=== PATIENT | male | born 1990 | race Caucasian/White ===

== ENCOUNTER 2017-02-22 16:01 | Observation (INO) | payer MEDICAID ==
[~2017-02-22] VITALS: Ht 185.4 cm; Wt 131.8 kg
[~2017-02-22 16:01] MED LIST: ACET1TAB40 PO; ACET500C5 PO; BENZ100C70 PO; DENIES MEDS; IBUP-1542 PO; MECL25TA2 PO; ONDA4TAB8 PO
[2017-02-22] MEDS ORDERED: ONDANSETRON 4 MG INJ IV STA (17:20)
[2017-02-22] MEDS ORDERED: HYDROmorphONE 1 MG/ML SYG IV STA ×2 (17:20→21:02)
[2017-02-22] MEDS ORDERED: SOD CHLORIDE 0.9% 1,000 ML IV STA (17:20)
[2017-02-22 18:42] LABS: ADD SCAN DIFF NO
[2017-02-22 18:43] LABS: BASOPHILS % 0.2 % (0.0-2.0); EOSINOPHILS # 0.1 10^3/ul (0.0-0.5); EOSINOPHILS % 0.7 % (0.0-7.0); HEMATOCRIT 44.7 % (42.0-52.0); HEMOGLOBIN 15.3 g/dl (14.0-18.0); LYMPHOCYTES # 1.6 10^3/ul (0.8-2.9); MEAN CORPUSCULAR HEMOGLOBIN 30.1 pg (29.0-33.0); MEAN CORPUSCULAR HGB CONC 34.2 g/dl (32.0-37.0); MEAN PLATELET VOLUME 9.5 fl (7.4-10.4); MONOCYTE # 0.6 10^3/ul (0.3-0.9); MONOCYTES % 4.8 % (0.0-11.0); NEUTROPHIL # 9.7 10^3/ul (1.6-7.5); NEUTROPHILS % 80.7 % (39.0-77.0); PLATELET COUNT 277 10^3/UL (140-415); RED BLOOD COUNT 5.08 10^6/ul (4.70-6.10); RED CELL DISTRIBUTION WIDTH 12.1 % (11.5-14.5)
[2017-02-22 19:07] LABS: ALBUMIN 4.4 g/dl (3.3-4.9); BILIRUBIN,INDIRECT 0.4 mg/dl (0-1.1); BILIRUBIN,TOTAL 0.4 mg/dl (0.2-1.3); CALCIUM 9.3 mg/dl (8.4-10.2); CREATININE 0.72 mg/dl (0.61-1.24); POTASSIUM 3.8 mmol/L (3.5-5.1); TOTAL PROTEIN 8.2 g/dl (6.1-8.1)
[2017-02-22 19:08] LABS: ALBUMIN/GLOBULIN RATIO 1.15
[2017-02-22] MEDS ORDERED: SOD CHLORIDE 0.9% 100 ML ONE (19:30)
[2017-02-22] MEDS ORDERED: IOHEXOL 300MG/ML 150 ML BTL ONE (19:30)
--- NOTE | 2017-02-22 19:52 | RADRPT ---
PROCEDURE: CT Abdomen and Pelvis with contrast. CLINICAL INDICATION: Abdomen and pelvis pain. Right lower quadrant pain. TECHNIQUE: CT scan of the abdomen and pelvis with contrast was performed. The patient was scanned following the uncomplicated intravenous administration of 100 cc of Omnipaque-300. Coronal and sag ittal reformatted images were obtained from the axial source images. Images were reviewed on a high- resolution PACS workstation. Total exam DLP is 1606.99 mGy-cm. CTDIvol is 23.61 mGy. One or more of the following dose reduction techniques were used: Automated exposure control, adjustment of the mA and/or kV according to patient size, use of iterative reconstruction technique. COMPARISON: 06/12/2015. FINDINGS: The lung bases are normal. There is no pleural effusion. The liver is enlarged and diffusely decreased attenuation consistent with fatty metamorphosis, uncha nged. There is a small ill-defined region of focal fatty sparing adjacent to the gallbladder. There is no other focal hepatic lesion. The gallbladder and bile ducts are normal. The spleen is normal in size. There is no focal splenic lesion. Both adrenals are normal with no enlargement or mass. The pancreas is unremarkable with no mass or evidence of pancreatitis. Both kidneys demonstrate normal contrast enhancement. There is no renal mass or hydronephrosis. The abdominal aorta is not dilated. There is no retroperitoneal lymphadenopathy or mass. There is no pelvic lymphadenopathy or mass. The bladder and distal ureters are normal. The appendix is mildly dilated measuring 9 mm in diameter. There is mild surrounding mesenteric bhargav ma and enhancement of the wall consistent with acute appendicitis. There is no fluid collection or mass to suggest abscess. The bowel and mesentery are otherwise normal. There is no free fluid or free gas. The osseous structures are unremarkable with no fracture or lytic lesion. IMPRESSION: 1. Hepatomegaly. 2. Fatty metamorphosis of the liver. 3. Small region of hepatic focal fatty sparing adjacent to the gallbladder. 4. Early acute appendicitis. 5. No abscess. 6. Otherwise unremarkable contrast enhanced CT scan of the abdomen and pelvis. RPTAT: QQ .Magdaleno Nielsen MD, MD Date Time Electronically viewed and signed by .Magdaleno Nielsen MD, on 02/22/2017 19:52 .Benji
[2017-02-22] MEDS ORDERED: CEFTRIAXONE 1 GM/50 ML (PMX) 50 ML IVPB ONE (20:30)
[2017-02-22] MEDS ORDERED: metroNIDAZOLE 500 MG/NS (PMX) 100 ML IVPB ONE (20:30)
--- NOTE | 2017-02-22 20:32 | ERA ---
ER Documentation Chief Complaint Date/Time DATE: 02/22/17 TIME: 20:29 Chief Complaint ABD PAIN SINCE THIS MORNING WITH DIARRHEA HPI This 27-year-old male complains of nausea vomiting diarrhea and fever onset this morning with periumbilical pain that has been escalating as the days progressed. The pain is dull and constant worse with movement somewhat. No dysuria no hematuria. No blood or bile in the vomit, no blood in the diarrhea. No epigastric pain. ROS All systems reviewed and are negative except as per history of present illness. Medications Home Meds Active Scripts Benzonatate* (Tessalon Perle*) 100 Mg Capsule, 100 MG PO Q8H Y for COUGH for 10 Days, CAP Prov:THANHTARIANADA PA-C 10/03/16 Acetaminophen* (Tylophen*) 500 Mg Capsule, 1 CAP PO Q6H Y for PAIN AND OR ELEVATED TEMP, #20 CAP Prov:THANHTARIADA MARMOLEJO PA-C 10/03/16 Ondansetron Hcl* (Zofran*) 4 Mg Tablet, 4 MG PO Q6H for NAUSEA AND/OR VOMITING, #30 TAB Prov:ADA DELACRUZ PA-C 10/03/16 Ibuprofen* (Motrin*) 600 Mg Tab, 600 MG PO Q6H Y for PAIN AND OR ELEVATED TEMP, #30 TAB Prov:CAMPOS LEO NP 03/19/16 Meclizine Hcl* (Antivert*) 25 Mg Tablet, 25 MG PO Q6H Y for DIZZINESS, #20 TAB Prov:CAMPOS LEO NP 03/19/16 Acetaminophen-Codeine* (Acetaminophen-Cod #3*) 300-30 Mg Tab, 1 TAB PO Q4H Y for PAIN, #14 TAB Prov:WU CHE MD 06/12/15 Ibuprofen* (Motrin*) 600 Mg Tab, 600 MG PO Q6, #20 TAB Prov:WU CHE MD 06/12/15 Reported Medications [none] Unknown Strength No Conflict Check 03/19/16 [Denies Meds] No Conflict Check 03/29/11 Allergies Allergies: Coded Allergies: Penicillins (Verified Allergy, Mild, 10/03/16) PMhx/Soc History of Surgery: No Anesthesia Reaction: No Hx Neurological Disorder: No Hx Respiratory Disorders: No Hx Cardiac Disorders: No (PALPITATIONS) Hx Psychiatric Problems: No Hx Miscellaneous Medical Probl: No Hx Alcohol Use: Yes (occasionally) Hx Substance Use: Yes (marijuana) Hx Tobacco Use: No Smoking Status: Former smoker FmHx Family History: No coronary disease Physical Exam Vitals Vital Signs Date Time Temp Pulse Resp B/P Pulse Ox O2 Delivery O2 Flow Rate FiO2 02/22/17 16:03 98.0 92 18 146/89 99 Physical Exam Const: Well-developed, well-nourished Head: Atraumatic, normocephalic Eyes: Normal Conjunctiva, PERRLA, EOMI, normal sclera, no nystagmus ENT: Normal External Ears, Nose and Mouth, moist mucus membranes. Neck: Full range of motion. No meningismus, no lymphadenopathy. Resp: Clear to auscultation bilaterally, no wheezing, rhonchi, rales Cardio: Regular rate and rhythm, no murmurs, S1 S2 present Abd: Soft, mild periumbilical tenderness with moderate right lower quadrant tenderness positive Rovsing, non distended. Normal bowel sounds, no guarding or rebound, no pulsitile abdominal masses or bruits Skin: No petechiae or rashes, no ecchymosis , no maculopapular rash Back: No midline or flank tenderness Ext: No cyanosis, or edema, FROM x 4, normal inspection, neurovascularly intact x 4 Neur: Awake and alert, STR 5/5 x 4, sensation intact x 4, no focal findings, cerebellum intact Psych: Normal Mood and Affect Result Diagram: 02/22/17 1745 02/22/17 1745 Results 24 hrs Laboratory Tests Test 02/22/17 17:45 White Blood Count 12.010^3/ul Red Blood Count 5.0810^6/ul Hemoglobin 15.3g/dl Hematocrit 44.7% Mean Corpuscular Volume 88.0fl Mean Corpuscular Hemoglobin 30.1pg Mean Corpuscular Hemoglobin Concent 34.2g/dl Red Cell Distribution Width 12.1% Platelet Count 33196^3/UL Mean Platelet Volume 9.5fl Neutrophils % 80.7% Lymphocytes % 13.0% Monocytes % 4.8% Eosinophils % 0.7% Basophils % 0.2% Nucleated Red Blood Cells % 0.0/100WBC Neutrophils # 9.710^3/ul Lymphocytes # 1.610^3/ul Monocytes # 0.610^3/ul Eosinophils # 0.110^3/ul Basophils # 0.010^3/ul Nucleated Red Blood Cells # 0.010^3/ul Sodium Level 136mmol/L Potassium Level 3.8mmol/L Chloride Level 102mmol/L Carbon Dioxide Level 27mmol/L Anion Gap 11 Blood Urea Nitrogen 7mg/dl Creatinine 0.72mg/dl Glucose Level 100mg/dl Calcium Level 9.3mg/dl Total Bilirubin 0.4mg/dl Direct Bilirubin 0.00mg/dl Indirect Bilirubin 0.4mg/dl Aspartate Amino Transf (AST/SGOT) 64IU/L Alanine Aminotransferase (ALT/SGPT) 147IU/L Alkaline Phosphatase 117IU/L Total Protein 8.2g/dl Albumin 4.4g/dl Globulin 3.80g/dl Albumin/Globulin Ratio 1.15 Lipase 78U/L Current Medications Medications (Trade) Dose Ordered Sig/Bhaskar Route PRN Reason Start Time Stop Time Status Last Admin Dose Admin Sodium Chloride (NS) 1,000 ml @ 1,000 mls/hr Q1H STAT IV 02/22/17 17:20 02/22/17 18:19 DC 02/22/17 18:00 Hydromorphone HCl (Dilaudid) 1 mg ONCE STAT IV 02/22/17 17:20 02/22/17 17:21 DC 02/22/17 17:59 Ondansetron HCl (Zofran Inj) 4 mg ONCE STAT IV 02/22/17 17:20 02/22/17 17:21 DC 02/22/17 17:59 IV Flush 10 ml 10 ml STK-MED ONCE .ROUTE 02/22/17 19:30 02/22/17 19:31 DC 02/22/17 19:39 Sodium Chloride (NS) 100 ml @ ud STK-MED ONCE .ROUTE 02/22/17 19:30 02/22/17 19:31 DC 02/22/17 19:39 Iohexol (Omnipaque 300mg/ ml) 150 ml STK-MED ONCE .ROUTE 02/22/17 19:30 02/22/17 19:31 DC 02/22/17 19:40 Procedures/MDM PROCEDURE: CT Abdomen and Pelvis with contrast. CLINICAL INDICATION: Abdomen and pelvis pain. Right lower quadrant pain. TECHNIQUE: CT scan of the abdomen and pelvis with contrast was performed. The patient was scanned following the uncomplicated intravenous administration of 100 cc of Omnipaque-300. Coronal and sagittal reformatted images were obtained from the axial source images. Images were reviewed on a high- resolution PACS workstation. Total exam DLP is 1606.99 mGy-cm. CTDIvol is 23.61 mGy. One or more of the following dose reduction techniques were used: Automated exposure control, adjustment of the mA and/or kV according to patient size, use of iterative reconstruction technique. COMPARISON: 06/12/2015. FINDINGS: The lung bases are normal. There is no pleural effusion. The liver is enlarged and diffusely decreased attenuation consistent with fatty metamorphosis, unchanged. There is a small ill-defined region of focal fatty sparing adjacent to the gallbladder. There is no other focal hepatic lesion. The gallbladder and bile ducts are normal. The spleen is normal in size. There is no focal splenic lesion. Both adrenals are normal with no enlargement or mass. The pancreas is unremarkable with no mass or evidence of pancreatitis. Both kidneys demonstrate normal contrast enhancement. There is no renal mass or hydronephrosis. The abdominal aorta is not dilated. There is no retroperitoneal lymphadenopathy or mass. There is no pelvic lymphadenopathy or mass. The bladder and distal ureters are normal. The appendix is mildly dilated measuring 9 mm in diameter. There is mild surrounding mesenteric edema and enhancement of the wall consistent with acute appendicitis. There is no fluid collection or mass to suggest abscess. The bowel and mesentery are otherwise normal. There is no free fluid or free gas. The osseous structures are unremarkable with no fracture or lytic lesion. IMPRESSION: 1. Hepatomegaly. 2. Fatty metamorphosis of the liver. 3. Small region of hepatic focal fatty sparing adjacent to the gallbladder. 4. Early acute appendicitis. 5. No abscess. 6. Otherwise unremarkable contrast enhanced CT scan of the abdomen and pelvis. RPTAT: QQ .Wu Nielsen MD, MD Date Time Electronically viewed and signed by .Wu Nielsen MD, on 02/22/2017 19:52 .R/ CC: JAE CRUZ DO Paged general surgery [facility] for consult for appendicitis. Will admit to panel Patient received Rocephin and Flagyl due to penicillin allergy Departure Diagnosis: Primary Impression: Appendicitis Qualified Code: K35.80 - Acute appendicitis, unspecified acute appendicitis type Condition: Stable JAE CRUZ DO Feb 22, 2017 20:32
[2017-02-22 21:11] VITALS: TEMP 98.4
[2017-02-22] MEDS ORDERED: SOD CHLORIDE 0.9% 1,000 ML IV SCH (21:23)
[2017-02-22] MEDS ORDERED: ONDANSETRON 4 MG INJ IV PRN (21:30)
[2017-02-22] MEDS ORDERED: ACETAMINOPHEN 325 MG TAB PO PRN (21:30)
[2017-02-22] MEDS ORDERED: SOD CHLORIDE 0.9% 1,000 ML IV ONE (21:30)
[2017-02-23] VITALS (18 sets, daily range): BP systolic 110–154; BP diastolic 58–83; PULSE 60–84; RESP 14–20
[2017-02-23] MEDS ORDERED: morphine 4 MG/ML VIAL IV PRN (01:20)
[2017-02-23] MEDS ORDERED: ONDANSETRON 4 MG INJ IV PRN ×3 (01:30→15:00)
[2017-02-23] MEDS: DEXTROSE 5%-0.45% NACL 1,000 ML IV SCH ×3 (01:36→11:49)
[2017-02-23] MEDS ORDERED: LEVOFLOXACIN 500MG/D5W (PMX) 100 ML IVPB SCH ×2 (03:00→14:00)
--- NOTE | 2017-02-23 03:30 | HP ---
DATE OF ADMISSION: 02/22/2017 CHIEF COMPLAINT: Abdominal pain. HISTORY OF PRESENT ILLNESS: The patient is a 27-year-old male with no past medical history who pres ented to the emergency department with abdominal pain that started this morning. The pain was initi ally diffuse but later on had been more localized in the right lower quadrant area. He reported mul tiple episodes of nonbloody, nonbilious emesis. He denied any fever, chills, chest pain, shortness of breath. When he presented to the ER, blood pressure was 146/89, heart rate 92, respiratory rate 18, temperat ure 98, oxygen saturation 99% on room air. Laboratory value shows a WBC of 12, AST 64, AST 147. Ot herwise, CBC and CMP are within normal limits. CT abdomen and pelvis with contrast shows early acut e appendicitis, hepatomegaly, and fatty liver. The patient was given IV fluids, pain medication, an d antiemetics, and he was started on Flagyl and Rocephin while he was in the ER. REVIEW OF SYSTEMS: A 12-point review was performed and negative except as mentioned in HPI. PAST MEDICAL HISTORY: Denies. PAST SURGICAL HISTORY: Denies. ALLERGIES: PENICILLIN. HOME MEDICATIONS: Please see the reconciliation medication. PHYSICAL EXAMINATION: VITAL SIGNS: Stable. GENERAL: No acute distress, answering questions appropriately. He is alert and oriented. HEENT: No obvious head deformity. Extraocular muscles intact. CARDIOVASCULAR: Regular rate and rhythm. No extra sounds. LUNGS: Clear. ABDOMEN: Soft. There is tenderness diffusely to deep palpation but more tender in the right lower quadrant region with no guarding, no rebound tenderness, no rigidity. EXTREMITIES: No edema. NEUROLOGIC: No focal deficits. LABORATORY DATA: Pertinent positives as mentioned in HPI. IMAGING: CT abdomen and pelvis with contrast with results as mentioned in the HPI. IMPRESSION: 1. Acute appendicitis. 2. Abdominal pain, secondary to above. 3. Leukocytosis, secondary to acute appendicitis. 4. Fatty liver. 5. Elevated transaminases, most likely secondary to fatty liver. PLAN: We will keep n.p.o. with IV fluids. We will provide pain medication and antiemetics as neede d. He will also be placed on antibiotics. Currently, he is awaiting surgical evaluation. Further workup and management per clinical course. Dictated By: CASSY GIPSON/ANA ROSA Conf#: [id number] DID#: [id number]
[2017-02-23 05:46] LABS: ADD SCAN DIFF NO
[2017-02-23 06:04] LABS: BASOPHILS % 0.2 % (0.0-2.0); EOSINOPHILS # 0.2 10^3/ul (0.0-0.5); HEMATOCRIT 39.5 % (42.0-52.0); HEMOGLOBIN 12.9 g/dl (14.0-18.0); LYMPHOCYTES # 2.7 10^3/ul (0.8-2.9); LYMPHOCYTES % 26.8 % (15.0-51.0); MEAN CORPUSCULAR HEMOGLOBIN 29.6 pg (29.0-33.0); MEAN CORPUSCULAR HGB CONC 32.7 g/dl (32.0-37.0); MEAN CORPUSCULAR VOLUME 90.6 fl (82.0-101.0); MEAN PLATELET VOLUME 9.6 fl (7.4-10.4); MONOCYTE # 0.5 10^3/ul (0.3-0.9); MONOCYTES % 5.2 % (0.0-11.0); NEUTROPHIL # 6.5 10^3/ul (1.6-7.5); NEUTROPHILS % 65.2 % (39.0-77.0); PLATELET COUNT 241 10^3/UL (140-415); RED BLOOD COUNT 4.36 10^6/ul (4.70-6.10); RED CELL DISTRIBUTION WIDTH 12.5 % (11.5-14.5)
[2017-02-23 06:16] LABS: ALBUMIN 3.5 g/dl (3.3-4.9)
[2017-02-23 06:17] LABS: POTASSIUM 3.5 mmol/L (3.5-5.1)
[2017-02-23 06:19] LABS: BILIRUBIN,INDIRECT 0.6 mg/dl (0-1.1); BILIRUBIN,TOTAL 0.6 mg/dl (0.2-1.3); CREATININE 0.83 mg/dl (0.61-1.24)
[2017-02-23 06:20] LABS: CALCIUM 8.4 mg/dl (8.4-10.2); MAGNESIUM 1.8 mg/dl (1.7-2.5)
--- NOTE | 2017-02-23 11:49 | PN ---
Date/Time of Note Date/Time of Note DATE: 02/23/17 TIME: 11:47 Assessment/Plan VTE Prophylaxis VTE Prophylaxis Intervention: other Lines/Catheters IV [facility] Peripheral IV Assessment/Plan Problems: (1) Obesity (BMI 35.0-39.9 without comorbidity) Status: Chronic Comment: Counseled gently (2) Appendicitis Status: Acute Comment: Patient will be seen in surgical consultation by Dr. Rivas. ER notes and Dr. Ochoa notes indicate that he is artery been contacted. For now patient's on antibiotics and observation Qualifiers: Appendicitis type: acute appendicitis Acute appendicitis type: unspecified acute appendicitis type Qualified Code: K35.80 - Acute appendicitis, unspecified acute appendicitis type Subjective 24 Hr Interval Summary Free Text/Dictation Patient reports with pain medications he is feeling better. Constitutional: no complaints (No fevers chills or sweats) Respiratory: no complaints Cardiovascular: no complaints Gastrointestinal: pain Exam/Review of Systems Vital Signs Vitals Vital Signs Date Time Temp Pulse Resp B/P Pulse Ox O2 Delivery O2 Flow Rate FiO2 02/23/17 07:20 98.2 81 18 119/66 96 02/23/17 00:05 Room Air Intake and Output 02/22/17 02/22/17 02/23/17 15:00 23:00 07:00 Intake Total 50 ml 1100 ml Balance 50 ml 1100 ml Exam Constitutional: alert, oriented Neck: non-tender, supple Respiratory: clear to auscultation, normal air movement Cardiovascular: nl pulses, regular rate and rhythm Gastrointestinal: other (Right lower quadrant tenderness with plus minus rebound after analgesia) Results Result Diagram: 02/23/17 0421 02/23/17 0421 Results 24 hrs Laboratory Tests Test 02/22/17 17:45 02/23/17 04:21 White Blood Count 12.0 #H 10.0 Red Blood Count 5.08 4.36 L Hemoglobin 15.3 12.9 L Hematocrit 44.7 39.5 L Mean Corpuscular Volume 88.0 90.6 Mean Corpuscular Hemoglobin 30.1 29.6 Mean Corpuscular Hemoglobin Concent 34.2 32.7 Red Cell Distribution Width 12.1 12.5 Platelet Count 277 241 Mean Platelet Volume 9.5 # 9.6 Neutrophils % 80.7 H 65.2 Lymphocytes % 13.0 L 26.8 Monocytes % 4.8 5.2 Eosinophils % 0.7 2.0 Basophils % 0.2 0.2 Nucleated Red Blood Cells % 0.0 0.0 Neutrophils # 9.7 H 6.5 Lymphocytes # 1.6 2.7 Monocytes # 0.6 0.5 Eosinophils # 0.1 0.2 Basophils # 0.0 0.0 Nucleated Red Blood Cells # 0.0 0.0 Sodium Level 136 139 Potassium Level 3.8 3.5 Chloride Level 102 101 Carbon Dioxide Level 27 28 Anion Gap 11 14 Blood Urea Nitrogen 7 7 Creatinine 0.72 0.83 Glucose Level 100 96 Calcium Level 9.3 8.4 Total Bilirubin 0.4 0.6 Direct Bilirubin 0.00 0.00 Indirect Bilirubin 0.4 0.6 Aspartate Amino Transf (AST/SGOT) 64 H 58 H Alanine Aminotransferase (ALT/SGPT) 147 H 114 H Alkaline Phosphatase 117 84 Total Protein 8.2 H 7.0 # Albumin 4.4 3.5 Globulin 3.80 H 3.50 H Albumin/Globulin Ratio 1.15 1.00 Lipase 78 Phosphorus Level 4.0 Magnesium Level 1.8 Medications Medications Current Medications Ondansetron HCl 4 mg 4 mg Q6H PRN IV NAUSEA AND/OR VOMITING Last administered on 02/23/17 01:36; Admin Dose 4 MG; Start 02/23/17 at 01:30 Dextrose/Sodium Chloride (D5-1/2ns) 1,000 ml @ 125 mls/hr Q8H IV Last administered on 02/23/17 01:36; Admin Dose 125 MLS/HR; Start 02/23/17 at 01:30 Morphine Sulfate 4 mg 4 mg Q4H PRN IV PAIN Last administered on 02/23/17 01:36 ; Admin Dose 4 MG; Start 02/23/17 at 01:20 Levofloxacin/ Dextrose (Levaquin 500mg/ D5W 100 ml (Pmx)) 100 ml @ 100 mls/hr Q24H IVPB Last administered on 02/23/17 03:23; Admin Dose 100 MLS/HR; Start at 03:00 STEVE RUSS MD Feb 23, 2017 11:49
[2017-02-23] MEDS ORDERED: morphine 2 MG INJ IV PRN (14:00)
[2017-02-23] MEDS ORDERED: ACETAMINOPHEN 325 MG TAB PO PRN (14:00)
[2017-02-23] MEDS ORDERED: FENTAnyl 50 MCG/ML VIAL ONE (14:12)
[2017-02-23] MEDS ORDERED: BUPIVACAINE 0.25%/EPI (SDV) 30 ML INJ ONE (14:21)
[2017-02-23] MEDS ORDERED: LIDOCAINE 1%/EPI 30 ML INJ ONE (14:21)
[2017-02-23] MEDS ORDERED: GLYCOPYRROLATE 0.4 MG INJ ONE (14:46)
[2017-02-23] MEDS ORDERED: ROPIVACAINE 0.5 % 30 ML VIAL ONE (14:46)
[2017-02-23] MEDS ORDERED: PROPOFOL 40 ML ONE (14:46)
[2017-02-23] MEDS ORDERED: ROCURONIUM 50 MG INJ ONE (14:46)
[2017-02-23] MEDS ORDERED: LIDOCAINE 2% (SDV) 5 ML INJ ONE (14:46)
[2017-02-23] MEDS ORDERED: NEOSTIGMINE 3 MG/3 ML SYRINGE ONE (14:46)
[2017-02-23] MEDS ORDERED: SUCCINYLCHOLINE CHLORIDE 100 MG/5 ML SYG IV ONE (14:46)
[2017-02-23] MEDS ORDERED: HYDROmorphONE (0.2 MG/ML) 10ML SYG IV PRN ×3 (15:00)
[2017-02-23] MEDS ORDERED: FENTAnyl 50 MCG/ML VIAL IV PRN ×2 (15:00)
[2017-02-23] MEDS ORDERED: METOCLOPRAMIDE 10 MG INJ IV PRN (15:00)
[2017-02-23] MEDS ORDERED: DIPHENHYDRAMINE 50 MG INJ IV PRN (15:00)
[2017-02-23] MEDS ORDERED: MEPERIDINE 25 MG INJ IV PRN (15:00)
--- NOTE | 2017-02-23 15:02 | CONS ---
DATE OF ADMISSION: 02/22/2017 DATE OF CONSULTATION: 02/23/2017 HISTORY OF PRESENT ILLNESS: Mr. Serrano is a 27-year-old male who had acute onset of abdominal rhonda n yesterday morning. His symptoms persisted and he went to work. When he went to work, he noticed his pain to the right lower quadrant. Due to radiation of was pain and persistence he came to the E [facility]. His workup in the ER was consistent with acute appendicitis. PAST MEDICAL HISTORY: Noncontributory. PAST SURGICAL HISTORY: None. MEDICATIONS: None. ALLERGIES: PENICILLIN. SOCIAL HISTORY: Drinks occasionally. Denies smoking or drug use. PHYSICAL EXAMINATION: GENERAL: He is a well-developed, well-nourished male in no apparent distress. VITAL SIGNS: He is afebrile. Vital signs stable. CHEST: Clear to auscultation bilaterally. HEART: Regular rhythm. ABDOMEN: Soft, nondistended, but significant right lower quadrant tenderness. LABORATORY DATA: Reveal a white count of 10, hematocrit of 40 and platelets of 241. Sodium 139, po tassium 3.5, chloride 101, CO2 of 28, BUN and creatinine 7 and 0.8, glucose 96. IMAGING: A CT of the abdomen and pelvis was consistent with acute appendicitis. ASSESSMENT AND PLAN: Acute appendicitis. I discussed laparoscopic, possible open appendectomy with the patient. All benefits, risks, alternatives were discussed in detail. All questions answered a nd patient elects to proceed. Dictated By: FREDA MCKEON/NTS Conf#: [id number] DID#: [id number]
[2017-02-23] MEDS: D5-NS + KCL 20 MEQ 1,000 ML IV SCH (16:05)
[2017-02-23] MEDS: KETOROLAC 30 MG INJ IV SCH ×2 (16:05→22:45)
--- NOTE | 2017-02-23 19:22 | OPR ---
DATE OF OPERATION: 02/23/2017 PREOPERATIVE DIAGNOSIS: Acute appendicitis. POSTOPERATIVE DIAGNOSIS: Acute appendicitis. PROCEDURE: Laparoscopic appendectomy. SURGEON: Freda Haro MD SPACE OFFICER: None. ANESTHESIA: General endotracheal. ANESTHESIOLOGIST: Dr. Buchanan ESTIMATED BLOOD LOSS: Minimal. COMPLICATIONS: None. SPECIMEN: Appendix. FINDINGS: Acute appendicitis. INDICATIONS: Mr. Serrano is a 27-year-old male who had acute onset of generalized abdominal pain, which localized to his right lower quadrant. He presented to the ER, and his work-up was c/w acute appendicitis. I discussed laparoscopic, possible open, appendectomy with the patient. All benefits, risks , alternatives were discussed in detail. All questions answered. The patient elects to proceed. PROCEDURE IN DETAIL: The patient was brought to the operating room and placed supine on the table. After preoperative antibiotics and SCDs were placed, the patient was intubated and the abdomen was cleaned, prepped, and draped in the usual sterile fashion. . A 5 mm incision was made in the umbilicus using a 5 laparoscope-containing trocar. The abdomen was entered under direct vision and insufflated to 15 mmHg CO2. The following trocars were then placed under direct vision: Right lower quadrant 5 mm, left lower quadrant 5 mm. Emanating from the cecum was an obvious acute appendicitis. It was not ruptured, perforated. There were some adhesions of the appendix to the cecum, which were taken down with electrocautery. Thus, I was able to elevate the appendix. I then was able to make a rent in the mesentery at the base of the appendix and then divide the cecum at the base of the appendix with a 35 Endo linear cutter white load. The appendix was then elevated and I divided the mesentery with a 35 mm Endo linear cutter white load. The appendix was placed in EndoCatch bag and removed from the 12 mm trocar site. There was some slight oozing from the vascular staple line, which was controlled with electrocautery. At this point, I irrigated out the right lower quadrant and pelvis until the effluent was clear. I visualized my staple lines again. They were hemostatic. I closed the fascia of the 12 mm trocar site with a 0 Vicryl using an EndoClose device under direct vision. All trocars were removed and the abdomen was completely desufflated. Skin incisions were all closed with 4-0 Monocryl, Mastisol, and Steri-Strips. The patient tolerated procedure well, was extubated in the OR, and transferred to the recovery room stable. Dictated By: FREDA HARO MD MAL/NTS Conf#: [id number] DID#: [id number] CC: CASSY DANIEL MD;*EndCC* MTDD
[2017-02-23] MEDS: OXYCODONE/ACETAMINOPHEN (5/325) TAB PO PRN (19:48)
[2017-02-24] MEDS ORDERED: LEVOFLOXACIN 500MG/D5W (PMX) 100 ML IVPB SCH (03:00)
[2017-02-24] MEDS: OXYCODONE/ACETAMINOPHEN (5/325) TAB PO PRN ×2 (04:46→11:07)
[2017-02-24] MEDS: D5-NS + KCL 20 MEQ 1,000 ML IV SCH ×2 (04:46→09:42)
[2017-02-24] MEDS: KETOROLAC 30 MG INJ IV SCH ×2 (04:46→10:41)
[2017-02-24] MEDS ORDERED: ENOXAPARIN 40 MG/0.4 ML SYG SC SCH (07:00)
[2017-02-24 08:16] VITALS: BP 113/69; RESP 18
--- NOTE | 2017-02-24 13:24 | PN ---
DATE: 02/24/2017 SUBJECTIVE: Ms. Serrano is postop day 1 from laparoscopic appendectomy. The patient is without co mplaints, feels well. OBJECTIVE: VITAL SIGNS: He is afebrile. Vital signs stable. ABDOMEN: Soft, nontender, nondistended. His wounds are clean, dry and intact. LABORATORY DATA: There are no labs today. ASSESSMENT AND PLAN: 1. Mr. Serrano is postop day 1 from laparoscopic appendectomy. 2. Stable for discharge home today. 3. The patient was given my instructions and restrictions. Dictated By: FREDA MCKEON/NTS Conf#: [id number] DID#: [id number]
[2017-02-24] MEDS ORDERED: DOCU-144 PO ×3 (14:57→14:59)
[2017-02-24] MEDS ORDERED: OXYC-279 PO (14:59)
--- NOTE | 2017-02-24 18:23 | DS ---
DATE OF ADMISSION: 02/22/2017 DATE OF DISCHARGE: 02/24/2017 DISCHARGE DIAGNOSIS: 1. Acute appendicitis status post laparoscopic appendectomy. 2. Morbid obesity. HOSPITAL COURSE : This is a 27-year-old male who presented to ER with complaints of abdominal pain. CT scan was consistent with possible acute appendicitis. The patient was seen by Dr. Rivas in powers rgical consult and underwent a laparoscopic appendectomy. Postop course was unremarkable. The marcie ent is doing well and being discharged home. DISCHARGE INSTRUCTIONS: DIET: Soft diet and advance as per surgical instructions. Activity as to lerated. MEDICATIONS: Upon discharge, Colace and Warren as per Dr. Rivas. Antibiotics have been completed. Medicine consult will be done by Dr. Castellano. Dictated By: MARCOS GRANT MD, MA/ANA ROSA Conf#: [id number] DID#: [id number]
== END 2017-02-24 15:30 | disposition home or self-care (01) ==
LOC: FTE 16:01 → MS1 21:24
PROVIDERS: ADMIT Internal Medicine; ATTEND Internal Medicine
DX: K35.80 Unspecified acute appendicitis (principal); E66.01 Morbid (severe) obesity due to excess calories; Z68.38 Body mass index [BMI] 38.0-38.9, adult
CPT/HCPCS: 36415; 44970; 74177; 80053; 83690; 83735; 84100; 85025; 88304; 96361; 96365; 96367; 96372; 96374; 96375; 96376; J0330; J0696; J1170; J1650; J1885; J1956; J2175; J2270; J2405; J2710; J2795; J3010; J3480; J7030; J7042; Q9967; Z7500; Z7502; Z7512; Z7610; G0378

== ENCOUNTER 2017-07-21 18:50 | Emergency (ER) | payer SELFPAY ==
[~2017-07-21] VITALS: Ht 185.4 cm; Wt 136.5 kg
[~2017-07-21 18:50] MED LIST changes: -ACET1TAB40 PO; -ACET500C5 PO; -DENIES MEDS; +DOCU-144 PO; -IBUP-1542 PO; +OXYC-279 PO
[2017-07-21 19:13] VITALS: Ht 185.4 cm; Wt 136.5 kg
[2017-07-21] MEDS ORDERED: TYL500 PO (21:06)
[2017-07-21] MEDS ORDERED: PSEU120T51 PO (21:07)
[2017-07-21] MEDS ORDERED: UDROBDM PO (21:08)
--- NOTE | 2017-07-21 21:24 | ERD ---
ER Documentation Chief Complaint Date/Time DATE: 07/21/17 TIME: 21:23 Chief Complaint cold, body ache, fever, congestion x 2 days HPI This is a 27-year-old male presents to the ER with headache, sneezing, coughing and runny nose that started yesterday. Patient took DayQuil today. He denies any chest pain or shortness of breath. Cough is dry and constant. Denies any fevers or chills. ROS 12 point review of systems was done, all negative except per HPI. Medications Home Meds Active Scripts Guaifenesin-Dextromethorphan* (Robitussin* DM) 100MG/10MG/5ML Syrup, 10 ML PO Q4H Y for COUGH for 3 Days, ML Prov:IRINEO CUNHA 07/21/17 Pseudoephedrine Hcl (Sudafed 12 Hour) 120 Mg Tablet.sa, 120 MG PO Q12 for 5 Days Prov:IRINEO CUNHA 07/21/17 Acetaminophen* (Tylenol*) 500 Mg Tab, 500 MG PO Q4H Y for MILD PAIN LEVEL 1-3 for 3 Days, TAB Prov:IRINEO CUNHA 07/21/17 Benzonatate* (Tessalon Perle*) 100 Mg Capsule, 100 MG PO Q8H Y for COUGH for 10 Days, CAP Prov:ADA DELACRUZ PA-C 10/03/16 Ondansetron Hcl* (Zofran*) 4 Mg Tablet, 4 MG PO Q6H for NAUSEA AND/OR VOMITING, #30 TAB Prov:ADA DELACRUZ PA-C 10/03/16 Meclizine Hcl* (Antivert*) 25 Mg Tablet, 25 MG PO Q6H Y for DIZZINESS, #20 TAB Prov:CAMPOS LEO NP 03/19/16 Reported Medications Oxycodone HCl/Acetaminophen (Percocet 5-325 mg Tablet) 1 Each Tablet, 2 EACH PO Q4 Y for PAIN, TAB 02/24/17 Docusate Sodium* (Colace*) 100 Mg Capsule, 100 MG PO BID, #60 CAP 02/24/17 Allergies Allergies: Coded Allergies: Penicillins (Verified Allergy, Mild, 07/21/17) PMhx/Soc Medical and Surgical Hx: pt denies Surgical Hx History of Surgery: No Anesthesia Reaction: No Hx Neurological Disorder: No Hx Respiratory Disorders: No Hx Cardiac Disorders: No (PALPITATIONS) Hx Psychiatric Problems: No Hx Miscellaneous Medical Probl: No Hx Alcohol Use: No Hx Substance Use: No Hx Tobacco Use: No Smoking Status: Never smoker Physical Exam Vitals Vital Signs Date Time Temp Pulse Resp B/P Pulse Ox O2 Delivery O2 Flow Rate FiO2 07/21/17 19:13 99.6 93 20 136/77 96 Physical Exam GENERAL: The patient is well-developed, well-nourished, in no acute distress. NECK: Cervical spine is non tender with no step off. Supple, no nuchal rigidity HEENT: Atraumatic. Pupils equal, round and reactive to light. Extraocular muscles are grossly intact. Conjunctivae pink, no discharge. Bilateral tympanic membranes are clear with no evidence of erythema, effusion or dulling of the light reflex. Tonsilar erythema with no exudates or uvular deviation. Clear rhinorrhea. RESPIRATORY: Clear to auscultation bilaterally. There are no rales, wheezes or rhonchi. HEART: Regular rate and rhythm. No murmurs, clicks, rubs or gallops. EXTREMITIES: No clubbing or cyanosis. Full range of motion. Grossly neurovascularly intact. NEUROLOGIC: Alert and oriented. Cranial nerves II through XII are intact. SKIN: There is no rash. The skin is warm and dry. Procedures/MDM Differential diagnosis includes but is not limited to; Viral URI, allergic rhinitis, bronchitis, pertussis,pneumonia. This is likely viral in etiology. Clinical suspicion for pneumonia is low as patient appears well, is not hypoxic or in any respiratory distress. Additionally, patients physical examination is benign. Plan was discussed with patient they understand and agree. Patient needs to follow up with PCP in 1-2 days or return to ER sooner if symptoms worsen. Departure Diagnosis: Primary Impression: Upper respiratory infection Condition: Stable Patient Instructions: Preventing Common Respiratory Infections Additional Instructions: Call your primary care doctor TOMORROW for an appointment during the next 1-2 days.See the doctor sooner or return here if your condition worsens before your appointment time. IRINEO CUNHA Jul 21, 2017 21:24
== END 2017-07-21 21:15 | disposition home or self-care (01) ==
LOC: FTE 18:50
DX: J06.9 Acute upper respiratory infection, unspecified (principal)
CPT/HCPCS: 99283

== ENCOUNTER 2019-06-06 22:42 | Emergency (ER) | payer SELFPAY ==
[~2019-06-06] VITALS: Ht 177.8 cm; Wt 131.3 kg
[~2019-06-06 22:42] MED LIST changes: +BENZ-6 PO; -BENZ100C70 PO; +BISM-34 PO; +GUAI5SYR2 PO; +ONDA4TAB14 PO; +PSEU120T12 PO; +TYL500 PO
[2019-06-06 22:45] VITALS: BP 133/78; PULSE 73; RESP 19; Ht 177.8 cm; Wt 131.3 kg
== END 2019-06-06 23:38 | disposition home or self-care (01) ==
LOC: FTE 22:42
DX: R11.2 Nausea with vomiting, unspecified (principal); R19.7 Diarrhea, unspecified
CPT/HCPCS: 99283